=== PATIENT | female | born 1985 | race Hispanic/Latino ===

== ENCOUNTER → 2022-02-03 18:45 | Outpatient (CLI) | payer BC, SELFPAY ==
[2022-02-03 20:38] LABS: Urine N gonorrhoeae NOT DETECTED
[2022-02-03 20:55] LABS: Urine Chlamydia NOT DETECTED
== END ==
PROVIDERS: Visit Provider Physician Assistant
DX: Z11.3 Encounter for screening for infections with a predominantly sexual mode of transmission (principal)
CPT/HCPCS: 87491; 87591

== ENCOUNTER → 2025-04-13 09:57 | Outpatient (CLI) | payer OTHER, SELFPAY ==
[2025-04-13 10:49] LABS: Add Manual Diff / Slide Review NO; Hematocrit 44.9 % (36-46); Hemoglobin 14.7 g/dL (12.0-16.0); Lymphocytes Absolute Auto 2900 /uL (1100-4500); Mean Corpuscular HGB Conc 32.8 % (30-36); Mean Corpuscular Hemoglobin 26.6 PG (26-34); Mean Corpuscular Volume 80.9 fL (80-100); Platelet Count 367 X10^3/uL (150-400)
[2025-04-13 10:58] LABS: Hemoglobin A1C% w Est Avg Glu 6.7 % (4.0-6.0)
[2025-04-13 11:20] LABS: Alanine Aminotransferase 49 IU/L (<35); Albumin 4.4 g/dL (3.5-5.0); Albumin Globulin Ratio 1.1 (1.0-2.8); Alkaline Phosphatase 113 U/L (38-126); Blood Urea Nitrogen 14 mg/dL (7-17); Calcium 9.3 mg/dL (8.4-10.2); Carbon Dioxide 21 mmol/L (22-32); Chloride 104 mmol/L (98-107); Cholesterol 227 mg/dL (140-199); Estimated Glomerular Filt Rate > 60 mL/min (>60); Globulin 4.0 g/dL (1.7-4.1); Glucose 144 mg/dL (70-99); HDL Cholesterol 41 mg/dL (40-60); HEMOLYSIS < 15 (0-50); Potassium 4.5 mmol/L (3.4-5.1); Sodium 137 mmol/L (137-145); Total Protein 8.4 g/dL (6.3-8.2); Triglycerides 153 mg/dL (35-150)
[2025-04-13 11:33] LABS: Follicle Stimulating Hormone 3.81 mIU/mL
[2025-04-13 11:47] LABS: Thyroid Stimulating Hormone 1.62 uIU/mL (0.47-4.68)
== END ==
PROVIDERS: PCP Student in an Organized Health Care Education/Training Program; Referring Provider Student in an Organized Health Care Education/Training Program; Visit Provider Student in an Organized Health Care Education/Training Program
DX: Z13.220 Encounter for screening for lipoid disorders (principal); R63.5 Abnormal weight gain; E66.9 Obesity, unspecified; N91.2 Amenorrhea, unspecified
CPT/HCPCS: 36415; 80053; 80061; 82672; 83001; 83036; 84146; 84403; 84443; 85025

== ENCOUNTER → 2025-04-21 06:51 | Outpatient (CLI) | payer OTHER, SELFPAY ==
--- NOTE | 2025-04-21 06:52 | DI.US.S_ITS ---
PROCEDURE: US PELVIC COMPLETE INDICATIONS: AMENORRHEA X 2 YEARS. NO CONTROL/HORMONE REPLACEMENT. TECHNIQUE: Real-time scanning was performed of the pelvic organs, with image documentation. Additional endovaginal scanning was necessary due to incomplete visualization of the adnexal and endometrial structures by transabdominal scanning. COMPARISON: None. FINDINGS: Uterus: Uterus is anteverted and normal in size at 7.4 x 6.0 x 4.7 cm. The myometrium is homogeneous. The endometrium measures 5.8 mm combined thickness. Ovaries: The right ovary is not well seen. The left ovary measures 2.5 x 1.3 x 1.0 cm, with a calculated ovarian volume of 1.7 cc. The ovaries have a normal sonographic appearance. Less than 12 follicles can be seen in each ovary. No adnexal masses are seen. Other: No pathologic free abdominal or pelvic fluid. IMPRESSION: Limited exam, which is unremarkable within visualized portions. Right ovary is not visualized. We strive to produce accurate, complete, and clear reports of imaging services. To assist us in improving patient care, this report was composed using standard report templates and voice recognition software. Therefore, it may contain abnormal punctuation, insertions and/or omissions. Occasional wrong-word or sound-alike substitutions may occur. Though we review the report and make efforts to correct it, we do recommend that the report be read carefully in proper context to recognize any text inaccuracies. Dictated by: Toya Crandall M.D. on 04/23/2025 at 16:27 Approved by: Toya Crandall M.D. on 04/23/2025 at 16:27
== END ==
LOC: US 06:52
PROVIDERS: PCP Student in an Organized Health Care Education/Training Program; Referring Provider Student in an Organized Health Care Education/Training Program; Visit Provider Student in an Organized Health Care Education/Training Program
DX: N91.2 Amenorrhea, unspecified (principal)
CPT/HCPCS: 76830; 76856

== ENCOUNTER → 2025-05-05 07:43 | Outpatient (CLI) | payer OTHER, SELFPAY ==
--- NOTE | 2025-05-05 07:51 | DIAB.MNT ---
Initial Diabetes Medical Nutrition Therapy Assessment Name: Catrachita Reed Date: 05/05/25 Time: -526x Dx: Type II Diabetes Provider: Adrian Preferred Learning Style: Catrachita presents for initial DM visit, newly dx with T2DM. Endorses FH of T1DM last 4 years with son (dx at 11 years old)and T2DM with both parents and sister. Reports making changes at home with food since sons T1 diagnosis, ie increased water, no sweetened beverages, more veggies, cooking at home more. Endorses binge eating/ emotional eating when stressed or around family celebrations. States GLP1 has helps with cravings and binges. No SE with GLP1. Some nausea with taking Metformin without food intake. Usually stress management includes isolating self in bedroom. States she has had stress in recent years with son's diagnosis and raising two teenagers alone per report. Reports h/o poor interaction with another RD when learning more about T1Dm with son. RD encouraging overly strict recs in pediatric nutrition seemingly. Reports limited appetite, not overly hungry between meals or before meal. Diet Recall: 7a: alexaien carlos 12p: leftovers, protein, 1c CHO, veggies 530-6p: protein, 1c starch (rice or potatoes) and veggies HS: nothing or fruit water 70-90oz diet soda infrequently Anthropometrics: Ht: 69 Wt: 380# 03/2025 Physical Activity: Recent walking 5 days per week x 60 mins with kids. Self-Monitoring Blood Glucose: Checking 1x per week, pre and post dinner usually 87-199mg/dl pre meal (usually 115-150mg/dl) and post meal often 150s. Diabetes Medications: 1.2mg Victoza 250mg Metformin Pertinent Labs: HgA1c: 6.7% 04/2025 Past Medical History: (Last Updated 04/10/25 @ 08:02 by Autumn Villalobos MA) Abnormal Pap smear of cervix (11/21/09) Nutrition Rx: Carbohydrates: Meal:45g Snack:15-30g Nutrition Diagnosis: - Altered nutrition related lab value r/t endocrine dysfunction aeb hgA1c 6.7% - Excessive kcal intake r/t binge eating when stressed aeb pt report Intervention: This participant was very receptive. Provided appropriate educational handouts. Discussed the following topics: Completed intake assessment. Discussed barriers to care. Potential of self-monitoring daily and/or continuously, OTC and coupons for CGM prn, how often, and when to check. Suggested checking at different times to evaluate meals Recommended servings for carbohydrates at meals and snacks Confirmed nutrition changes at home as consistent with ADA Encouraged family based nutrition that would not exacerbate disordered eating Brief discussion on physical activity Stress impact on health and nutrition and potential outlets Created SMART goals for patient self-care and success. Goals: Consider stress management outlets that work for you Check FBG Try OTC CGM sample Follow-up: [facility] follow-up in 3-4 weeks. overall, Catrachita is well versed in nutrition and DM, based on education she received when son was diagnosed. She is motivated to start managing her DM and has already implemented strategies. Jeanne Pappas RDN, [facility] Certified [facility] and [employer] P: [phone] Thank you for this referral
== END ==
LOC: DIET 07:43
PROVIDERS: PCP Student in an Organized Health Care Education/Training Program; Referring Provider Student in an Organized Health Care Education/Training Program
DX: E11.9 Type 2 diabetes mellitus without complications (principal); Z71.3 Dietary counseling and surveillance; Z83.3 Family history of diabetes mellitus; Z79.84 Long term (current) use of oral hypoglycemic drugs; Z79.85 Long-term (current) use of injectable non-insulin antidiabetic drugs
CPT/HCPCS: 97802

== ENCOUNTER → 2025-08-08 09:11 | Outpatient (CLI) | payer OTHER, SELFPAY | PROVIDERS: PCP Student in an Organized Health Care Education/Training Program; Visit Provider Student in an Organized Health Care Education/Training Program | DX: N89.8 Other specified noninflammatory disorders of vagina (principal) | CPT/HCPCS: 87210 ==